=== PATIENT | female | born 1985 | race Two or more races ===

== ENCOUNTER 2021-10-21 22:11 | Emergency (ER) | payer SELFPAY ==
[~2021-10-21] VITALS: Ht 182.9 cm; Wt 65.3 kg
[2021-10-21] MEDS: DIPHENOXYLATE W/ATROPINE 2.5 MG TAB PO SCH (22:00)
[2021-10-21] MEDS ORDERED: LACT. RINGERS/OXYTOCIN 20UNITS 1,000 ML IV ONE ×2 (22:24→23:30)
[2021-10-21] MEDS ORDERED: SODIUM CHLORIDE 0.9% 1,000 ML IV ONE (22:30)
[2021-10-21 22:42] LABS: Basophils # (auto) 0.1 10 ^3/uL (0-0.2); Basophils % (auto) 0.5 % (0.0-2.0); Eosinophils # (auto) 0 10 ^3/uL (0-0.8); Hematocrit 36.6 % (36.0-46.0); Hemoglobin 12.7 g/dL (12.2-16.2); Lymphocytes # (auto) 1.3 10 ^3/uL (0.4-5.4); Lymphocytes % (auto) 5.2 % (10.0-50.0); Mean Corpuscular Hemoglobin 30.2 pg (28.0-32.0); Mean Corpuscular Hgb Conc. 34.8 g/dL (32.0-36.0); Monocytes # (auto) 0.8 10 ^3/uL (0-1.3); Monocytes % (auto) 3.4 % (0.0-12.0); Neutrophils # (auto) 22.1 10 ^3/uL (1.6-8.6); Neutrophils % (auto) 90.9 % (37.0-80.0); Nucleated Red Blood Cells % 0.1 %; Red Blood Cells 4.21 10^6/uL (4.0-5.20); Red Cell Distribution Width 13.8 % (11.8-14.3); White Blood Cell 24.3 10^3/uL (4.4-10.8)
[2021-10-21] MEDS ORDERED: miSOPROStol 100 mcg TAB ONE (22:46)
[2021-10-21] MEDS ORDERED: CARBOPROST TROMETHAMINE 250 MCG/1ML VIAL IM ONE ×2 (22:47→23:20)
[2021-10-21] MEDS ORDERED: METHYLERGONOVINE MALEATE 0.2 MG/ML AMP IM ONE (22:47)
[2021-10-21 23:02] LABS: Albumin 2.2 g/dL (3.4-5.0); Calcium 8.5 mg/dL (8.5-10.1); Potassium 4.1 mmol/L (3.5-5.1)
[2021-10-21 23:04] LABS: BUN/Creatinine Ratio 11.9
[2021-10-21 23:08] LABS: Bilirubin, Total 0.3 mg/dL (0.2-1.0)
[2021-10-21] MEDS ORDERED: ceFAZolin 1GM/50ML 100 ML IV ONE (23:15)
[2021-10-21] MEDS ORDERED: CARBOPROST TROMETHAMINE 250 MCG/1ML VIAL IM PRN (23:15)
[2021-10-21] MEDS ORDERED: DIPHENOXYLATE W/ATROPINE 2.5 MG TAB ONE (23:20)
[2021-10-22] MEDS ORDERED: CLINDAMYCIN 900MG IV 50 ML IV ONE
[2021-10-22] MEDS ORDERED: ACETAMINOPHEN 325 MG TAB PO ONE
[2021-10-22] MEDS: DIPHENOXYLATE W/ATROPINE 2.5 MG TAB PO SCH (00:42)
[2021-10-22 01:00] VITALS: BP 124/77
== END 2021-10-22 02:19 | disposition home or self-care (01) ==
LOC: EDBD 22:11 → ER 22:15
DX: O72.1 Other immediate postpartum hemorrhage (principal); Z88.0 Allergy status to penicillin
CPT/HCPCS: 36415; 80053; 85025; 86850; 86900; 86901; 96365; 96366; 96367; 96372; 99285; J2590; J3490; J7030